=== PATIENT | male | born 1995 | race Caucasian/White ===

== ENCOUNTER 2017-07-28 13:04 | Emergency (ER) | payer OTHER ==
[2017-07-28] MEDS ORDERED: LORazepam 2 MG/ML INJ ONE (13:14)
[2017-07-28 13:22] VITALS: RESP 16; TEMP 97.9
--- NOTE | 2017-07-28 14:29 | EDPHY ---
H & P Smoking Status: Never smoked Time Seen by Provider: 07/28/17 14:28 HPI/ROS: I did not see this patient while he was in the emergency department. Care was provided by Dr. Virk ([facility]) CHIEF COMPLAINT: Seizure HISTORY OF PRESENT ILLNESS: 21-year-old male with a history of epilepsy presents after generalized seizure. He was at work today and had a 2 minutes generalized seizure. He did not fall or hurt himself. He denies any complaints and feels back to normal. He would like to go home. He has been working with at [facility] to adjust his seizure medications. He has [id number] seizures and is currently taking 3 anti-seizure medications. Last seizure was at the beginning of May. REVIEW OF SYSTEMS: Constitutional: No fever, no chills Eyes: No visual changes ENT: No sore throat Respiratory: No cough, no shortness of breath Cardiac: No chest pain Gastrointestinal: No nausea, no vomiting, no abdominal pain Genitourinary: no dysuria Musculoskeletal: No leg pain or swelling Skin: No rash Neurological: No headache, no weakness [Psychiatric: No depression (Elena Virk) Past Medical/Surgical History: Epilepsy (Elena Virk) Social History: Single (Elena Virk) Physical Exam: General Appearance: Alert, pleasant Eyes: Pupils equal and round, 4 mm, no conjunctival pallor or injection ENT, Mouth: Mucous membranes moist Neck: Normal inspection Respiratory: Lungs are clear to auscultation Cardiovascular: Regular rate and rhythm Gastrointestinal: Abdomen is soft and nontender Neurological: Alert, oriented x3, cranial nerves II through XII intact, motor 5 /5, sensory intact to light touch, normal gait Skin: Warm and dry Extremities: Normal inspection Psychiatric: Mood and affect normal (Elena Virk) Constitutional: Initial Vital Signs Temperature (C) 36.6 C 07/28/17 13:04 Heart Rate 73 07/28/17 13:04 Respiratory Rate 16 07/28/17 13:04 Blood Pressure 138/77 H 07/28/17 13:04 O2 Sat (%) 98 07/28/17 13:04 O2 Delivery Mode Room Air Allergies/Adverse Reactions: No Known Allergies Allergy (Verified 07/28/17 13:15) Home Medications: Medication Instructions Recorded Lamictal 07/28/17 Vimpat 07/28/17 Zonegran 07/28/17 Medical Decision Making ED Course/Re-evaluation: This patient was observed in the emergency department for 90 minutes. Mental status remained clear and neurologic exam normal, no further seizures. He will follow up with his neurologist. This pt was not seen by Dr. Winter. (Elena Virk) Differential Diagnosis: Differential diagnosis includes though it is not limited to status epilepticus, hypoglycemia, intracranial hemorrhage, CVA, benzodiazepine withdrawal, alcohol withdrawal, epilepsy. (Elena Virk) Departure - Departure Disposition: Home, Routine, Self-Care Clinical Impression: Seizure disorder Condition: Good Instructions: Epilepsy (ED) Additional Instructions: Call Dr. Cadena to inform him of the seizure. Referrals: KELL LA [Primary Care Provider] - As per Instructions
[2017-07-28 14:44] VITALS: BP 125/73; PULSE 69; O2SAT 96
== END 2017-07-28 14:44 | disposition home or self-care (01) ==
DX: G40.909 Epilepsy, unspecified, not intractable, without status epilepticus (principal)
CPT/HCPCS: J2060

== ENCOUNTER 2017-08-20 19:05 | Emergency (ER) | payer OTHER ==
[2017-08-20 19:14] VITALS: RESP 16; TEMP 98.2
--- NOTE | 2017-08-20 19:14 | EDPHY ---
H & P Time Seen by Provider: 08/20/17 19:11 HPI/ROS: CHIEF COMPLAINT: Seizure HISTORY OF PRESENT ILLNESS: Patient brought in by EMS when reporting alliance party saw him have a seizure at the bus stop. Tonic clonic activity described and he was initially only oriented x1 on EMS arrival. The reporting alliance party did not mention duration of seizure activity to EMS, they estimate the incident happened at 6: 45 p.m. Currently feels tired. No other symptoms. He says he" might have missed" a dose of his Lamictal this morning. REVIEW OF SYSTEMS: Eye: no change in vision ENT: no sore throat Cardiac: no chest pain or syncope Pulmonary: no cough or SOB Abdomen: no vomiting, diarrhea, abdominal pain Musculoskeletal: no back pain Skin: no rash Neuro: no headache Constitutional: no fever : no urinary symptoms A comprehensive 10 point review of systems is otherwise negative aside from elements mentioned in the history of present illness. 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 Eyes: No scleral icterus. ENT, Mouth: Normal mucous membranes. No tongue abrasion. Respiratory: Normal respiratory effort, breath sounds equal, lungs are clear to auscultation. Cardiovascular: Regular rate and rhythm. Gastrointestinal: Abdomen is soft and non tender. Neurological: Alert and oriented x3. Normally conversant. Face symmetric, normal movement and sensation in all extremities. Not tremulous. Skin: Warm and dry, no rashes. Musculoskeletal: No peripheral edema and no joint swelling. No spinal tenderness. Psychiatric: Not agitated. Emergency Department course/MDM: Chem 7 and EKG. 1953: Venous CO2 suggest seizure is likely. Glucose normal. 2000: Feels back to normal, remembers being at the bus stop. He also relates that he forgot to take his Lamictal and his Vimpat this morning. His mother who is in the room now said he had a seizure this morning. With this history however I feel that it is likely due to medication noncompliance. If he continues to take his medications as prescribed I think it is reasonable to send him home tonight. Smoking Status: Never smoked Constitutional: Initial Vital Signs Temperature (C) 36.8 C 08/20/17 19:12 Heart Rate 119 H 08/20/17 19:12 Respiratory Rate 16 08/20/17 19:12 Blood Pressure 129/69 H 08/20/17 19:12 O2 Sat (%) 91 L 08/20/17 19:12 O2 Delivery Mode Room Air Allergies/Adverse Reactions: No Known Allergies Allergy (Verified 07/28/17 13:15) Home Medications: Medication Instructions Recorded Lamictal 07/28/17 Vimpat 07/28/17 Zonegran 07/28/17 Medical Decision Making - Diagnostics EKG Interpretation: 12-lead EKG interpreted by me; official reading is in trace master. My interpretation is sinus tachycardia, LVH, no ischemic changes, otherwise normal intervals. Differential Diagnosis: Differential diagnosis considered for a seizure including but not limited to electrolyte abnormality, alcohol withdrawal, medication noncompliance, head injury, and breakthrough seizure. - Data Points Laboratory Results: Laboratory Results 08/20/17 19:10 08/20/17 19:10 Sodium 145 mEq/L H mEq/L (134-144) Potassium 3.9 mEq/L mEq/L (3.5-5.2) Chloride 104 mEq/L mEq/L (97-110) Carbon Dioxide 9 mEq/l L* mEq/l (22-31) Anion Gap 32 mEq/L H mEq/L (8-16) BUN 17 mg/dL mg/dL (7-23) Creatinine 1.0 mg/dL mg/dL (0.7-1.3) Estimated GFR > 60 Glucose 133 mg/dL H mg/dL (70-100) Calcium 9.6 mg/dL mg/dL (8.5-10.4) Departure - Departure Disposition: Home, Routine, Self-Care Clinical Impression: Seizure disorder Condition: Good Instructions: Epilepsy (ED) Additional Instructions: Continue current medications as prescribed. Please contact your [place] neurologist tomorrow. No driving. Referrals: Patient,NotPresent [Unknown] - As per Instructions [facility] ,. [Edm Groups for Call Sched] - As per Instructions
--- NOTE | 2017-08-20 19:14 | EDPHY ---
H & P Time Seen by Provider: 08/20/17 19:11 HPI/ROS: CHIEF COMPLAINT: Seizure HISTORY OF PRESENT ILLNESS: Patient brought in by EMS when reporting libertarian saw him have a seizure at the bus stop. Tonic clonic activity described and he was initially only oriented x1 on EMS arrival. The reporting libertarian did not mention duration of seizure activity to EMS, they estimate the incident happened at 6: 45 p.m. Currently feels tired. No other symptoms. He says he" might have missed" a dose of his Lamictal this morning. REVIEW OF SYSTEMS: Eye: no change in vision ENT: no sore throat Cardiac: no chest pain or syncope Pulmonary: no cough or SOB Abdomen: no vomiting, diarrhea, abdominal pain Musculoskeletal: no back pain Skin: no rash Neuro: no headache Constitutional: no fever : no urinary symptoms A comprehensive 10 point review of systems is otherwise negative aside from elements mentioned in the history of present illness. 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 Eyes: No scleral icterus. ENT, Mouth: Normal mucous membranes. No tongue abrasion. Respiratory: Normal respiratory effort, breath sounds equal, lungs are clear to auscultation. Cardiovascular: Regular rate and rhythm. Gastrointestinal: Abdomen is soft and non tender. Neurological: Alert and oriented x3. Normally conversant. Face symmetric, normal movement and sensation in all extremities. Not tremulous. Skin: Warm and dry, no rashes. Musculoskeletal: No peripheral edema and no joint swelling. No spinal tenderness. Psychiatric: Not agitated. Emergency Department course/MDM: Chem 7 and EKG. 1953: Venous CO2 suggest seizure is likely. Glucose normal. 2000: Feels back to normal, remembers being at the bus stop. He also relates that he forgot to take his Lamictal and his Vimpat this morning. His mother who is in the room now said he had a seizure this morning. With this history however I feel that it is likely due to medication noncompliance. If he continues to take his medications as prescribed I think it is reasonable to send him home tonight. Smoking Status: Never smoked Constitutional: Initial Vital Signs Temperature (C) 36.8 C 08/20/17 19:12 Heart Rate 119 H 08/20/17 19:12 Respiratory Rate 16 08/20/17 19:12 Blood Pressure 129/69 H 08/20/17 19:12 O2 Sat (%) 91 L 08/20/17 19:12 O2 Delivery Mode Room Air Allergies/Adverse Reactions: No Known Allergies Allergy (Verified 07/28/17 13:15) Home Medications: Medication Instructions Recorded Lamictal 07/28/17 Vimpat 07/28/17 Zonegran 07/28/17 Medical Decision Making - Diagnostics EKG Interpretation: 12-lead EKG interpreted by me; official reading is in trace master. My interpretation is sinus tachycardia, LVH, no ischemic changes, otherwise normal intervals. Differential Diagnosis: Differential diagnosis considered for a seizure including but not limited to electrolyte abnormality, alcohol withdrawal, medication noncompliance, head injury, and breakthrough seizure. - Data Points Laboratory Results: Laboratory Results 08/20/17 19:10 08/20/17 19:10 Sodium 145 mEq/L H mEq/L (134-144) Potassium 3.9 mEq/L mEq/L (3.5-5.2) Chloride 104 mEq/L mEq/L (97-110) Carbon Dioxide 9 mEq/l L* mEq/l (22-31) Anion Gap 32 mEq/L H mEq/L (8-16) BUN 17 mg/dL mg/dL (7-23) Creatinine 1.0 mg/dL mg/dL (0.7-1.3) Estimated GFR > 60 Glucose 133 mg/dL H mg/dL (70-100) Calcium 9.6 mg/dL mg/dL (8.5-10.4) Departure - Departure Disposition: Home, Routine, Self-Care Clinical Impression: Seizure disorder Condition: Good Instructions: Epilepsy (ED) Additional Instructions: Continue current medications as prescribed. Please contact your [place] neurologist tomorrow. No driving. Referrals: Patient,NotPresent [Unknown] - As per Instructions [facility] ,. [Edm Groups for Call Sched] - As per Instructions
--- NOTE | 2017-08-20 19:14 | EDPHY ---
H & P Time Seen by Provider: 08/20/17 19:11 HPI/ROS: CHIEF COMPLAINT: Seizure HISTORY OF PRESENT ILLNESS: Patient brought in by EMS when reporting republican saw him have a seizure at the bus stop. Tonic clonic activity described and he was initially only oriented x1 on EMS arrival. The reporting republican did not mention duration of seizure activity to EMS, they estimate the incident happened at 6: 45 p.m. Currently feels tired. No other symptoms. He says he" might have missed" a dose of his Lamictal this morning. REVIEW OF SYSTEMS: Eye: no change in vision ENT: no sore throat Cardiac: no chest pain or syncope Pulmonary: no cough or SOB Abdomen: no vomiting, diarrhea, abdominal pain Musculoskeletal: no back pain Skin: no rash Neuro: no headache Constitutional: no fever : no urinary symptoms A comprehensive 10 point review of systems is otherwise negative aside from elements mentioned in the history of present illness. 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 Eyes: No scleral icterus. ENT, Mouth: Normal mucous membranes. No tongue abrasion. Respiratory: Normal respiratory effort, breath sounds equal, lungs are clear to auscultation. Cardiovascular: Regular rate and rhythm. Gastrointestinal: Abdomen is soft and non tender. Neurological: Alert and oriented x3. Normally conversant. Face symmetric, normal movement and sensation in all extremities. Not tremulous. Skin: Warm and dry, no rashes. Musculoskeletal: No peripheral edema and no joint swelling. No spinal tenderness. Psychiatric: Not agitated. Emergency Department course/MDM: Chem 7 and EKG. 1953: Venous CO2 suggest seizure is likely. Glucose normal. 2000: Feels back to normal, remembers being at the bus stop. He also relates that he forgot to take his Lamictal and his Vimpat this morning. His mother who is in the room now said he had a seizure this morning. With this history however I feel that it is likely due to medication noncompliance. If he continues to take his medications as prescribed I think it is reasonable to send him home tonight. Smoking Status: Never smoked Constitutional: Initial Vital Signs Temperature (C) 36.8 C 08/20/17 19:12 Heart Rate 119 H 08/20/17 19:12 Respiratory Rate 16 08/20/17 19:12 Blood Pressure 129/69 H 08/20/17 19:12 O2 Sat (%) 91 L 08/20/17 19:12 O2 Delivery Mode Room Air Allergies/Adverse Reactions: No Known Allergies Allergy (Verified 07/28/17 13:15) Home Medications: Medication Instructions Recorded Lamictal 07/28/17 Vimpat 07/28/17 Zonegran 07/28/17 Medical Decision Making - Diagnostics EKG Interpretation: 12-lead EKG interpreted by me; official reading is in trace master. My interpretation is sinus tachycardia, LVH, no ischemic changes, otherwise normal intervals. Differential Diagnosis: Differential diagnosis considered for a seizure including but not limited to electrolyte abnormality, alcohol withdrawal, medication noncompliance, head injury, and breakthrough seizure. - Data Points Laboratory Results: Laboratory Results 08/20/17 19:10 08/20/17 19:10 Sodium 145 mEq/L H mEq/L (134-144) Potassium 3.9 mEq/L mEq/L (3.5-5.2) Chloride 104 mEq/L mEq/L (97-110) Carbon Dioxide 9 mEq/l L* mEq/l (22-31) Anion Gap 32 mEq/L H mEq/L (8-16) BUN 17 mg/dL mg/dL (7-23) Creatinine 1.0 mg/dL mg/dL (0.7-1.3) Estimated GFR > 60 Glucose 133 mg/dL H mg/dL (70-100) Calcium 9.6 mg/dL mg/dL (8.5-10.4) Departure - Departure Disposition: Home, Routine, Self-Care Clinical Impression: Seizure disorder Condition: Good Instructions: Epilepsy (ED) Additional Instructions: Continue current medications as prescribed. Please contact your [place] neurologist tomorrow. No driving. Referrals: Patient,NotPresent [Unknown] - As per Instructions [facility] ,. [Edm Groups for Call Sched] - As per Instructions
--- NOTE | 2017-08-20 19:17 | CPEKG ---
Heart Rate: 105 RR Interval: 571 P-R Interval: 144 QRSD Interval: 98 QT Interval: 328 QTC Interval: 434 P [place]: 59 QRS [place]: 65 T Wave [place]: -2 EKG Severity - ABNORMAL ECG - EKG Impression: SINUS TACHYCARDIA EKG Impression: PROBABLE LEFT VENTRICULAR HYPERTROPHY Electronically Signed By: John Banerjee 20-Aug-2017 19:45:56
[2017-08-20 20:30] VITALS: BP 109/68; PULSE 73; O2SAT 96
== END 2017-08-20 20:30 | disposition home or self-care (01) ==
LOC: EDUNIT#
DX: G40.909 Epilepsy, unspecified, not intractable, without status epilepticus (principal)